=== PATIENT | female | born 1985 | race Caucasian/White ===

== ENCOUNTER → 2019-11-09 | Outpatient (CLI) | payer BC ==
[~2019-11-09] MED LIST: PRENATAL1 TA1 PO
== END ==
LOC: COL.RAD 13:01
DX: J32.9 Chronic sinusitis, unspecified (principal)

== ENCOUNTER → 2020-04-15 | Outpatient (CLI) | payer BC | LOC: COL.RAD 12:25 | DX: E22.9 Hyperfunction of pituitary gland, unspecified (principal); N64.3 Galactorrhea not associated with childbirth | CPT/HCPCS: A9585 ==